=== PATIENT | female | born 1990 | race Caucasian/White ===

== ENCOUNTER 2018-06-03 12:41 | Outpatient (CLI) | payer OTHER ==
[2018-06-03 14:46] LABS: RUPTURE FETAL MEMBRANES NEGATIVE (NEGATIVE)
== END 2018-06-03 16:35 | disposition home or self-care (01) ==
LOC: OBT 12:41 → L-D 12:42 → OBT 16:35
DX: O42.913 Preterm premature rupture of membranes, unspecified as to length of time between rupture and onset of labor, third trimester (principal); Z3A.38 38 weeks gestation of pregnancy
CPT/HCPCS: 76818; 84112

== ENCOUNTER 2018-06-04 19:53 | Inpatient (IN) | payer OTHER ==
[2018-06-04] MEDS ORDERED: OXYTOCIN 30 UNITS/LR 500 ML IV ×2 (22:30)
[2018-06-04] MEDS ORDERED: CARBOPROST 250 MCG INJ IM (22:30)
[2018-06-04] MEDS ORDERED: MISOPROSTOL 200 MCG TAB PR (22:30)
[2018-06-04 22:39] LABS: ADD MAN DIFF? NO; BASOPHIL # 0.1 10^3/ul (0.0-0.1); BASOPHILS % 0.5 % (0.0-2.0); EOSINOPHILS # 0.1 10^3/ul (0.0-0.5); EOSINOPHILS % 0.6 % (0.0-7.0); HEMATOCRIT 33.8 % (37.0-47.0); HEMOGLOBIN 10.8 g/dl (12.0-16.0); LYMPHOCYTES # 2.2 10^3/ul (0.8-2.9); LYMPHOCYTES % 20.5 % (15.0-51.0); MEAN CORPUSCULAR HEMOGLOBIN 27.1 pg (29.0-33.0); MEAN CORPUSCULAR VOLUME 84.7 fl (82.0-101.0); MEAN PLATELET VOLUME 10.5 fl (7.4-10.4); MONOCYTE # 1.2 10^3/ul (0.3-0.9); MONOCYTES % 10.6 % (0.0-11.0); NEUTROPHIL # 7.4 10^3/ul (1.6-7.5); NEUTROPHILS % 67.3 % (39.0-77.0); PLATELET COUNT 288 10^3/UL (140-415); RED BLOOD COUNT 3.99 10^6/ul (4.20-5.40); RED CELL DISTRIBUTION WIDTH 14.2 % (11.5-14.5)
[2018-06-04 22:39] LABS: WHITE BLOOD COUNT 10.9 10^3/ul (4.8-10.8)
[2018-06-04 22:49] LABS: ADD UMIC YES; UR ASCORBIC ACID NEGATIVE (NEGATIVE); UR BACTERIA FEW /HPF (NONE SEEN); UR BILIRUBIN (Dip) NEGATIVE (NEGATIVE); UR BLOOD (Dip) NEGATIVE (NEGATIVE); UR CLARITY CLEAR (CLEAR); UR COLOR YELLOW (YELLOW); UR GLUCOSE (Dip) NEGATIVE (NEGATIVE); UR KETONES (Dip) NEGATIVE (NEGATIVE); UR LEUKOCYTE ESTERASE (Dip) 1+ Leu/ul (NEGATIVE); UR NITRITE (Dip) NEGATIVE (NEGATIVE); UR RBC 3 /HPF (0-5); UR SPECIFIC GRAVITY (Dip) 1.014 (1.003-1.030); UR SQUAMOUS EPITHELIAL CELL FEW /HPF (FEW); UR TOTAL PROTEIN (Dip) NEGATIVE (NEGATIVE); UR UROBILINOGEN (Dip) NEGATIVE (NEGATIVE); UR WBC 2 /HPF (0-5)
[2018-06-04 22:57] LABS: ALANINE AMINOTRANSFERASE 14 IU/L (13-69); ALBUMIN 3.6 g/dl (3.3-4.9); ALBUMIN/GLOBULIN RATIO 0.97; ALKALINE PHOSPHATASE 187 IU/L (42-121); ANION GAP 10 (5-13); ASPARTATE AMINO TRANSFERASE 17 IU/L (15-46); BILIRUBIN,INDIRECT 0.1 mg/dl (0-1.1); BILIRUBIN,TOTAL 0.1 mg/dl (0.2-1.3); BLOOD UREA NITROGEN 9 mg/dl (7-20); CALCIUM 9.2 mg/dl (8.4-10.2); CARBON DIOXIDE 21 mmol/L (21-31); CHLORIDE 107 mmol/L (97-110); CREATININE 0.38 mg/dl (0.44-1.00); Estimated GFR > 60 mL/min (>60); GLUCOSE 88 mg/dl (70-220); POTASSIUM 3.8 mmol/L (3.5-5.1); SODIUM 138 mmol/L (135-144); TOTAL PROTEIN 7.3 g/dl (6.1-8.1); URIC ACID 4.6 mg/dl (3.1-7.9)
[2018-06-04] MEDS: LACTATED RINGER'S 1,000 ML IV (22:59)
[2018-06-04 23:27] LABS: HEPATITIS B SURFACE ANTIGEN NEGATIVE (NEGATIVE)
[2018-06-04 23:33] LABS: INR 0.89; PROTIME 12.2 Sec (11.9-14.9)
[2018-06-04 23:34] LABS: PARTIAL THROMBOPLASTIN TIME 27.6 Sec (23.0-35.0)
[2018-06-05] MEDS: BUTORPHANOL 2 MG INJ IV (00:04)
[2018-06-05] MEDS ORDERED: FENTAnyl 2MCG/ML-ROPIV 0.2% 100 ML (04:08)
[2018-06-05] MEDS ORDERED: NALOXONE (0.4 MG/ML) INJ IV (04:30)
[2018-06-05] MEDS: OXYTOCIN 30 UNITS/LR 500 ML IV ×2 (04:49→16:33)
[2018-06-05] MEDS ORDERED: ONDANSETRON 4 MG INJ (09:09)
[2018-06-05] MEDS: ONDANSETRON 4 MG INJ IV (09:13)
[2018-06-05] MEDS: LACTATED RINGER'S 1,000 ML IV (09:55)
[2018-06-05] MEDS ORDERED: AMPICILLIN 2 GM/NS (PMX) 100 ML (10:57)
[2018-06-05] MEDS ORDERED: ACETAMINOPHEN 500 MG TAB (10:57)
[2018-06-05] MEDS: ACETAMINOPHEN 500 MG TAB PO (10:58)
[2018-06-05] MEDS: AMPICILLIN 2 GM/NS (PMX) 100 ML IVPB ×4 (10:58→23:18)
[2018-06-05] MEDS: FENTAnyl 2MCG/ML-ROPIV 0.2% 100 ML BAG EPI (11:58)
[2018-06-05] MEDS: GENTAMICIN 80 MG/NS (PMX) 50 ML IVPB ×2 (12:05→17:37)
[2018-06-05] MEDS: LIDOCAINE 1% (MPF) 30 ML INJ INJ (15:56)
[2018-06-05] MEDS: MINERAL OIL LIGHT 10 ML VIAL TOP (16:06)
[2018-06-05] MEDS: METHYLERGONOVINE 0.2 MG INJ IM (16:06)
[2018-06-05] MEDS: HYDROCODONE/APAP (5/325) TAB PO (16:33)
[2018-06-05] MEDS ORDERED: OXYTOCIN 30 UNITS/LR 500 ML IV (17:00)
[2018-06-05] MEDS ORDERED: METHYLERGONOVINE 0.2 MG TAB PO (17:00)
[2018-06-05] MEDS ORDERED: ACETAMINOPHEN 325 MG TAB PO (17:00)
[2018-06-05] MEDS ORDERED: METHYLERGONOVINE 0.2 MG INJ IM (17:00)
[2018-06-05] MEDS ORDERED: CARBOPROST 250 MCG INJ IM (17:00)
[2018-06-05] MEDS ORDERED: MISOPROSTOL 200 MCG TAB PR (17:00)
[2018-06-05] MEDS ORDERED: IBUPROFEN 600 MG TAB (17:36)
[2018-06-05] MEDS ORDERED: IBUPROFEN 800 MG TAB (17:40)
[2018-06-05] MEDS: IBUPROFEN 800 MG TAB PO (17:42)
[2018-06-05 19:48] LABS: ADD MAN DIFF? NO
[2018-06-05 19:50] LABS: BASOPHIL # 0.1 10^3/ul (0.0-0.1); BASOPHILS % 0.4 % (0.0-2.0); EOSINOPHILS % 0.1 % (0.0-7.0); HEMATOCRIT 35.5 % (37.0-47.0); HEMOGLOBIN 11.1 g/dl (12.0-16.0); LYMPHOCYTES # 1.4 10^3/ul (0.8-2.9); LYMPHOCYTES % 6.8 % (15.0-51.0); MEAN CORPUSCULAR HEMOGLOBIN 26.4 pg (29.0-33.0); MEAN CORPUSCULAR HGB CONC 31.3 g/dl (32.0-37.0); MEAN CORPUSCULAR VOLUME 84.5 fl (82.0-101.0); MEAN PLATELET VOLUME 10.5 fl (7.4-10.4); MONOCYTE # 1.4 10^3/ul (0.3-0.9); MONOCYTES % 6.8 % (0.0-11.0); NEUTROPHILS % 85.2 % (39.0-77.0); PLATELET COUNT 262 10^3/UL (140-415); RED CELL DISTRIBUTION WIDTH 14.2 % (11.5-14.5)
[2018-06-05 19:59] LABS: ADD UMIC YES; UR ASCORBIC ACID NEGATIVE (NEGATIVE); UR BILIRUBIN (Dip) NEGATIVE (NEGATIVE); UR BLOOD (Dip) 3+ mg/dL (NEGATIVE); UR CLARITY CLEAR (CLEAR); UR COLOR STRAW (YELLOW); UR GLUCOSE (Dip) NEGATIVE (NEGATIVE); UR KETONES (Dip) TRACE mg/dL (NEGATIVE); UR LEUKOCYTE ESTERASE (Dip) NEGATIVE Leu/ul (NEGATIVE); UR NITRITE (Dip) NEGATIVE (NEGATIVE); UR RBC 12 /HPF (0-5); UR SPECIFIC GRAVITY (Dip) 1.005 (1.003-1.030); UR TOTAL PROTEIN (Dip) NEGATIVE (NEGATIVE); UR UROBILINOGEN (Dip) NEGATIVE (NEGATIVE); UR WBC 2 /HPF (0-5)
[2018-06-05 20:10] LABS: ALANINE AMINOTRANSFERASE 7 IU/L (13-69); ALKALINE PHOSPHATASE 175 IU/L (42-121); ANION GAP 9 (5-13); ASPARTATE AMINO TRANSFERASE 41 IU/L (15-46); BILIRUBIN,INDIRECT 0.1 mg/dl (0-1.1); BILIRUBIN,TOTAL 0.1 mg/dl (0.2-1.3); BLOOD UREA NITROGEN 10 mg/dl (7-20); CARBON DIOXIDE 18 mmol/L (21-31); CHLORIDE 108 mmol/L (97-110); CREATININE 0.72 mg/dl (0.44-1.00); Estimated GFR > 60 mL/min (>60); GLUCOSE 150 mg/dl (70-220); POTASSIUM 3.6 mmol/L (3.5-5.1); SODIUM 135 mmol/L (135-144)
[2018-06-05] MEDS: SENNA/DOCUSATE NA (8.6MG/50MG) TAB PO (21:35)
[2018-06-05 21:41] LABS: RAPID PLASMA REAGIN NONREACTIVE (NR)
[2018-06-06] MEDS: DEXTROSE 5%-LR 1,000 ML IV ×4 (00:39→16:39)
[2018-06-06] MEDS: OXYTOCIN 30 UNITS/LR 500 ML IV (00:40)
[2018-06-06] MEDS: GENTAMICIN 80 MG/NS (PMX) 50 ML IVPB ×3 (03:32→19:48)
[2018-06-06] MEDS: AMPICILLIN 2 GM/NS (PMX) 100 ML IVPB ×2 (05:27→12:41)
[2018-06-06] MEDS: IBUPROFEN 800 MG TAB PO ×3 (05:28→21:14)
[2018-06-06 08:04] LABS: ADD MAN DIFF? NO
[2018-06-06 08:11] LABS: WHITE BLOOD COUNT 16.8 10^3/ul (4.8-10.8)
[2018-06-06 08:11] LABS: BASOPHIL # 0.1 10^3/ul (0.0-0.1); BASOPHILS % 0.4 % (0.0-2.0); EOSINOPHILS % 0.2 % (0.0-7.0); HEMATOCRIT 29.9 % (37.0-47.0); HEMOGLOBIN 9.6 g/dl (12.0-16.0); LYMPHOCYTES # 1.7 10^3/ul (0.8-2.9); LYMPHOCYTES % 9.9 % (15.0-51.0); MEAN CORPUSCULAR HEMOGLOBIN 27.1 pg (29.0-33.0); MEAN CORPUSCULAR HGB CONC 32.1 g/dl (32.0-37.0); MEAN CORPUSCULAR VOLUME 84.5 fl (82.0-101.0); MEAN PLATELET VOLUME 10.5 fl (7.4-10.4); MONOCYTE # 1.4 10^3/ul (0.3-0.9); MONOCYTES % 8.3 % (0.0-11.0); NEUTROPHIL # 13.6 10^3/ul (1.6-7.5); NEUTROPHILS % 80.8 % (39.0-77.0); PLATELET COUNT 225 10^3/UL (140-415); RED BLOOD COUNT 3.54 10^6/ul (4.20-5.40); RED CELL DISTRIBUTION WIDTH 14.6 % (11.5-14.5)
[2018-06-06] MEDS: SENNA/DOCUSATE NA (8.6MG/50MG) TAB PO ×2 (08:52→21:14)
[2018-06-06] MEDS: LANOLIN HPA 1 PKT TOP (08:52)
[2018-06-06] MEDS ORDERED: HYDROCODONE/APAP (5/325) TAB PO (11:00)
[2018-06-06] MEDS ORDERED: DIPHTH/TET/ACEL PERTUSS (ADULT) 0.5 ML VIAL IM* (11:00)
[2018-06-06] MEDS: HYDROCODONE/APAP (5/325) TAB PO ×2 (14:01→21:14)
[2018-06-07] MEDS: DEXTROSE 5%-LR 1,000 ML IV ×2 (00:39→08:39)
[2018-06-07] MEDS: GENTAMICIN 80 MG/NS (PMX) 50 ML IVPB (04:00)
[2018-06-07] MEDS: IBUPROFEN 800 MG TAB PO (05:38)
[2018-06-07] MEDS: HYDROCODONE/APAP (5/325) TAB PO (05:39)
[2018-06-07] MEDS: SENNA/DOCUSATE NA (8.6MG/50MG) TAB PO (10:59)
[2018-06-07 12:18] LABS: ADD MAN DIFF? NO
[2018-06-07 12:23] LABS: WHITE BLOOD COUNT 11.3 10^3/ul (4.8-10.8)
[2018-06-07 12:23] LABS: BASOPHILS % 0.4 % (0.0-2.0); EOSINOPHILS # 0.2 10^3/ul (0.0-0.5); EOSINOPHILS % 1.5 % (0.0-7.0); HEMATOCRIT 30.2 % (37.0-47.0); HEMOGLOBIN 9.6 g/dl (12.0-16.0); LYMPHOCYTES # 1.7 10^3/ul (0.8-2.9); LYMPHOCYTES % 15.3 % (15.0-51.0); MEAN CORPUSCULAR HEMOGLOBIN 27.4 pg (29.0-33.0); MEAN CORPUSCULAR HGB CONC 31.8 g/dl (32.0-37.0); MEAN CORPUSCULAR VOLUME 86.3 fl (82.0-101.0); MEAN PLATELET VOLUME 10.1 fl (7.4-10.4); MONOCYTE # 0.9 10^3/ul (0.3-0.9); MONOCYTES % 7.5 % (0.0-11.0); NEUTROPHIL # 8.4 10^3/ul (1.6-7.5); NEUTROPHILS % 74.5 % (39.0-77.0); PLATELET COUNT 240 10^3/UL (140-415); RED CELL DISTRIBUTION WIDTH 14.6 % (11.5-14.5)
[2018-06-08] MEDS ORDERED: DIPHTH/TET/ACEL PERTUSS (ADULT) 0.5 ML VIAL IM* (09:00)
[2018-06-08] MEDS ORDERED: MEASLES,MUMPS,RUBELLA VACCINE INJ SC* (09:00)
== END 2018-06-07 15:55 | disposition home or self-care (01) | DRG 807 ==
LOC: OBT 19:53 → PP1 06-05 20:14 → L-D 19:54 → OBT 22:15 → L-D 22:15
PROC: 10E0XZZ Delivery of Products of Conception, External Approach (ICD-10-PCS; principal; ~2018-06-04)
DX: O80 Encounter for full-term uncomplicated delivery (principal); Z37.0 Single live birth; Z3A.39 39 weeks gestation of pregnancy
CPT/HCPCS: 62319; 80053; 81001; 84560; 85025; 85384; 85610; 85730; 86592; 86850; 86900; 86901; 87340; 88307; 99464